=== PATIENT | female | born 1985 | race American Indian/Alaskan Native ===

== ENCOUNTER 2017-08-01 05:09 | Emergency (ER) | payer MEDICAID ==
[2017-08-01 05:11] VITALS: BMI 31.3
[2017-08-01 05:37] VITALS: RESP 18
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
[2017-08-01 07:03] VITALS: BP 120/84; PULSE 88; TEMP 98
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
--- NOTE | 2017-08-01 12:51 | RAD ---
PROCEDURE: Left Knee Radiographs. HISTORY: Pain. COMPARISON: None. FINDINGS: BONES: Normal. No fracture. JOINTS: Normal. No osteoarthritis. JOINT EFFUSION: Suspect trace joint effusion OTHER FINDINGS: None. IMPRESSION: No evidence of acute displaced fracture nor dislocation. . Suspect trace joint effusion
--- NOTE | 2017-08-01 12:58 | RAD ---
PROCEDURE: Cervical spine dated 08/01/2017. AP lateral and open-mouth views of the cervical spine performed. Note that the examination is limited due to partial obscuration of the odontoid by overlying incisor teeth in the open-mouth projection. There is also incomplete visualization of the C7 segment in the lateral projection due to overlying shoulder artifact and hospital gown metallic snap. HISTORY: Pain. COMPARISON: None. FINDINGS: BONES: No evidence of acute displaced fracture nor dislocation within the limitations of this study the The dens is partially obscured by overlying incisor teeth in the open-mouth projection DISC SPACES: Mild degenerative spondylosis noted at the C6-C7 level with prominent marginal anterior osteophyte formation. SOFT TISSUES: Normal. No prevertebral soft tissue swelling. OTHER FINDINGS: None. IMPRESSION: No evidence of acute displaced fracture nor dislocation within the limitation of this exam (incomplete visualization of the odontoid and C7 segments) however follow-up additional imaging such as CT scan could be performed if further evaluation is required. Mild degenerative spondylosis C6-C7 level. . Note that the this report was placed in PA review folder for followup
--- NOTE | 2017-08-01 14:02 | RAD ---
PROCEDURE: Radiographs of the pelvis and bilateral hips HISTORY: Injury COMPARISON: None. FINDINGS: BONES: Pelvis: Unremarkable. Right hip:Unremarkable. Left hip:Unremarkable. JOINTS: Right hip: Minimal spur formation superolateral margin right acetabular roof Left hip: There is also minimal spur formation left superolateral margin of the left acetabular roof. . Sacroiliac Joints: Unremarkable. Pubic symphysis: Unremarkable. SOFT TISSUES: Normal. OTHER FINDINGS: None. IMPRESSION: No evidence of acute displaced fracture nor dislocation. If symptoms persist or worsen consider followup CT scan for further evaluation
[2017-08-02 02:55] VITALS: O2SAT 96
== END 2017-08-01 07:01 | disposition home or self-care (01) ==
LOC: C.ER 05:09
DX: S16.1XXA Strain of muscle, fascia and tendon at neck level, initial encounter (principal); S83.92XA Sprain of unspecified site of left knee, initial encounter; S82.892A Other fracture of left lower leg, initial encounter for closed fracture; V13.4XXA Pedal cycle driver injured in collision with car, pick-up truck or van in traffic accident, initial encounter; Y92.410 Unspecified street and highway as the place of occurrence of the external cause; F12.10 Cannabis abuse, uncomplicated